=== PATIENT | male | born 1965 | race African-American/Black ===

== ENCOUNTER 2018-08-08 12:11 | Inpatient (IN) | payer MEDICAID ==
[~2018-08-08] VITALS: Ht 170.2 cm; Wt 74.4 kg
[2018-08-08] MEDS ORDERED: SODIUM CHLORIDE 0.9% 1,000 ML IV ONE (12:32)
[2018-08-08] MEDS ORDERED: ONDANSETRON HCL 4MG/2ML INJ IV STA (12:32)
[2018-08-08 13:25] LABS: BASOPHILS % 0.2 % (0.0-2.0); HEMATOCRIT. 46.8 % (42.0-52.0); MEAN CORPUSCULAR HEMOGLOBIN 30.4 pg (28.0-32.0); MEAN CORPUSCULAR VOLUME 88.7 fL (80.0-94.0); MEAN PLATELET VOLUME 8.4 fl (7.4-10.4); NEUTROPHILS % 82.8 % (40.0-76.0); PLATELET 309 x1000/uL (130-400); RED BLOOD CELL COUNT 5.28 mill/uL (4.7-6.1); RED CELL DISTRIBUTION WIDTH 15.3 % (11.6-14.6)
[2018-08-08 13:29] LABS: CHLORIDE 95 mEq/L (98-107)
[2018-08-08 13:31] LABS: PROTHROMBIN TIME 10.2 sec (9.6-11.0)
[2018-08-08 13:35] LABS: ETHANOL BLOOD < 10 mg/dL
[2018-08-08] MEDS ORDERED: KETOROLAC 15MG/ML VIAL IV ONE (14:45)
[2018-08-08 17:00] LABS: CLARITY URINE CLOUDY (CLEAR); COLOR URINE DARK YELLOW (YELLOW); KETONES URINE 2+ (NEGATIVE); LEUKOCYTE ESTERASE URINE NEGATIVE (NEGATIVE); NITRITE URINE NEGATIVE (NEGATIVE); OCCULT BLOOD URINE NEGATIVE (NEGATIVE); PH URINE 6.5 (4.5-8.0); PROTEIN URINE 2+ (NEGATIVE); SPECIFIC GRAVITY URINE 1.028 (1.005-1.030)
[2018-08-08 17:13] LABS: *AMPHETAMINES SCREEN URINE NEGATIVE (NEGATIVE); *BARBITURATES SCREEN URINE NEGATIVE (NEGATIVE); *BENZODIAZEPINES SCREEN URINE NEGATIVE (NEGATIVE); *COCAINE SCREEN URINE NEGATIVE (NEGATIVE); METHADONE URINE SCREEN NEGATIVE (NEGATIVE); OPIATES URINE SCREEN NEGATIVE (NEGATIVE)
[2018-08-08 17:14] LABS: CANNABINOID URINE SCREEN PRESUMTIVE POSITIVE (NEGATIVE); PHENCYCLIDINE URINE SCREEN NEGATIVE (NEGATIVE)
[2018-08-08 18:13] LABS: HEMATOCRIT 44.7 % (42.0-52.0); HEMOGLOBIN 15.3 g/dL (14.0-18.0); MEAN CORPUSCULAR HEMOGLOBIN 30.7 pg (28.0-32.0); MEAN CORPUSCULAR VOLUME 89.8 fL (80.0-94.0); PLATELET 280 x1000/uL (130-400); RED BLOOD CELL COUNT 4.98 mill/uL (4.7-6.1); RED CELL DISTRIBUTION WIDTH 15.1 % (11.6-14.6)
[2018-08-08] MEDS ORDERED: ONDANSETRON HCL 4MG/2ML INJ IV ONE (19:30)
[2018-08-08] MEDS ORDERED: LABETALOL 5MG/ML SYR 20 MG/4 ML SYRINGE IV ONE (19:30)
[2018-08-08] MEDS ORDERED: FAMOTIDINE 20MG/2ML VIAL IV ONE (19:30)
[2018-08-08] MEDS ORDERED: KCL 20MEQ/100ML PREMIX 100 ML IV ONE (20:30)
[2018-08-08 21:45] VITALS: BP 171/115
[2018-08-08] MEDS ORDERED: ONDANSETRON HCL 4MG/2ML INJ IV PRN (22:30)
[2018-08-08] MEDS: AMLODIPINE 10MG TABLET PO SCH (23:23)
[2018-08-08] MEDS: CLONIDINE 0.1MG TABLET PO PRN (23:23)
[2018-08-08] MEDS: PANTOPRAZOLE SODIUM 40 MG/VIAL IV SCH (23:28)
[2018-08-08] MEDS: DEXT 5%/0.45% NACL KCL 20MEQ/L 1,000 ML IV SCH (23:29)
[2018-08-08] MEDS ORDERED: LEVOFLOXACIN 500MG PREMIX 100 ML IV SCH (23:45)
[2018-08-09] VITALS: BP 155/99
[2018-08-09 04:00] VITALS: BP 127/94
[2018-08-09 06:19] LABS: HEMATOCRIT 41.5 % (42.0-52.0); HEMOGLOBIN 14.3 g/dL (14.0-18.0); MEAN CORPUSCULAR HEMOGLOBIN 30.9 pg (28.0-32.0); MEAN CORPUSCULAR VOLUME 89.5 fL (80.0-94.0); PLATELET 257 x1000/uL (130-400); RED BLOOD CELL COUNT 4.63 mill/uL (4.7-6.1); RED CELL DISTRIBUTION WIDTH 15.3 % (11.6-14.6)
[2018-08-09 06:21] LABS: CHLORIDE 98 mEq/L (98-107)
[2018-08-09 08:00] VITALS: BP 150/110
[2018-08-09] MEDS: PANTOPRAZOLE SODIUM 40 MG/VIAL IV SCH (10:33)
[2018-08-09] MEDS: AMLODIPINE 10MG TABLET PO SCH (10:33)
[2018-08-09 12:00] VITALS: BP 140/95
[2018-08-09] MEDS: CLONIDINE 0.1MG TABLET PO PRN (13:45)
[2018-08-09 17:00] VITALS: BP 124/86
[2018-08-09] MEDS: DEXT 5%/0.45% NACL KCL 20MEQ/L 1,000 ML IV SCH (18:20)
[2018-08-09 20:00] VITALS: BP 115/79
[2018-08-09] MEDS ORDERED: LEVOFLOXACIN 500MG PREMIX 100 ML IV SCH (21:00)
[2018-08-10] VITALS: BP 120/90
[2018-08-10 04:00] VITALS: BP 124/71
[2018-08-10] MEDS: DEXT 5%/0.45% NACL KCL 20MEQ/L 1,000 ML IV SCH ×2 (05:46→09:46)
[2018-08-10 08:00] VITALS: BP 128/89
[2018-08-10] MEDS: PANTOPRAZOLE SODIUM 40 MG/VIAL IV SCH (09:46)
[2018-08-10] MEDS: AMLODIPINE 10MG TABLET PO SCH (09:46)
[2018-08-10 12:00] VITALS: BP 124/86
[2018-08-10 13:00] VITALS: BP 124/86
[2018-08-10 16:00] VITALS: BP 135/89
== END 2018-08-10 18:02 | disposition home or self-care (01) | DRG 241 ==
LOC: ER 12:11 → 8WST 20:05 → EDBEDREQTM 20:09 → EDBEDREQ 20:09 → ENRESERV 20:25
PROVIDERS: ADMIT Internal Medicine; ATTEND Internal Medicine
DX: K29.70 Gastritis, unspecified, without bleeding (principal); R65.10 Systemic inflammatory response syndrome (SIRS) of non-infectious origin without acute organ dysfunction; E87.8 Other disorders of electrolyte and fluid balance, not elsewhere classified; E86.0 Dehydration; E87.6 Hypokalemia; I10 Essential (primary) hypertension; Z59.0 Homelessness
CPT/HCPCS: 36415; 71045; 74176; 80048; 80076; 80305; 80320; 82962; 85027; 86850; 86900; 93005; 96374; 96375; 99285; C9113; J1885; J1956; J2405; J3480; J3490; J7030; J7050; G0480